=== PATIENT | female | born 1980 | race Caucasian/White ===

== ENCOUNTER → 2017-12-09 | Outpatient (CLI) | payer BC ==
[~2017-12-09] MED LIST: CETI5; Dexamethasone4 MG PO; FEXPSEER PO; OXYACE5T PO; Robaxin500 MG PO
[2017-12-11 12:03] LABS: HPV Genotype 16 Not Detected (NOTDET); HPV Genotype 18 Not Detected (NOTDET)
[2017-12-18 08:33] LABS: HPV High Risk Other Not Detected (NOTDET)
[2017-12-21 06:56] LABS: Source Cervix
== END ==
LOC: LAB 16:17 → LAB SHORT 16:17
PROVIDERS: Nurse Practitioner Family
DX: Z12.4 Encounter for screening for malignant neoplasm of cervix (principal)
CPT/HCPCS: 87624; 88142

== ENCOUNTER 2018-12-28 12:03 | Day surgery (SDC) | payer BC ==
[~2018-12-28] VITALS: Ht 177.8 cm; Wt 106.5 kg
[~2018-12-28 12:03] MED LIST changes: +AMIT25 PO; +Allegra-D 12 H1 EACH PO; +BACL20 PO; +CLARITIN10 MG PO; +Ferrous Sulfat325 M2 PO; +OMEPRAZOLE MAGN20 MG PO
== END 2018-12-28 14:05 | disposition home or self-care (01) ==
LOC: ORSCSDS 12:03
PROVIDERS: Internal Medicine Gastroenterology
PROC: 0DB68ZX Excision of Stomach, Via Natural or Artificial Opening Endoscopic, Diagnostic (ICD-10-PCS; principal; 2018-12-28 13:45)
PROC: 0DB58ZX Excision of Esophagus, Via Natural or Artificial Opening Endoscopic, Diagnostic (ICD-10-PCS; principal; 2018-12-28 13:45)
DX: R13.10 Dysphagia, unspecified (principal); K22.2 Esophageal obstruction
CPT/HCPCS: 88305; 88342; J2250; J2704; J7120

== ENCOUNTER → 2022-02-07 | Outpatient (CLI) | payer BC, OTHER ==
[2022-02-07 19:25] LABS: BASOPHILS ABSOLUTE AUTO 0.03 K/mm3 (0.00-0.23); BASOPHILS PERCENT AUTO 0 % (0-2); EOSINOPHILS ABSOLUTE AUTO 0.07 K/mm3 (0.00-0.68); EOSINOPHILS PERCENT AUTO 1 % (0-6); Hematocrit 38.9 % (33.0-51.0); Hemoglobin 13.2 g/dL (11.5-16.0); IMMATURE GRAN ABSOLUTE AUTO 0.03 K/mm3 (0.00-0.10); IMMATURE GRAN PERCENT AUTO 0 % (0-1); LYMPHOCYTES ABSOLUTE AUTO 1.71 K/mm3 (0.84-5.20); LYMPHOCYTES PERCENT AUTO 18 % (21-46); MONOCYTES ABSOLUTE AUTO 0.56 K/mm3 (0.16-1.47); MONOCYTES PERCENT AUTO 6 % (4-13); Mean Corpuscular HGB 30.5 pg (26.0-34.0); Mean Corpuscular HGB Conc 33.9 g/dL (31.5-36.5); Mean Corpuscular Volume 90 fL (80-100); Mean Platelet Volume 9.8 fL (9.1-12.4); NEUTROPHILS ABSOLUTE AUTO 7.15 K/mm3 (1.96-9.15); NEUTROPHILS PERCENT AUTO 75 % (41-73); Platelet Count 224 K/mm3 (150-400); RDW Coefficient Variation 12.7 % (11.7-14.2); RDW Standard Deviation 41.8 fL (35.1-46.3); Red Blood Cell Count 4.33 M/mm3 (3.80-5.20); White Blood Cell Count 9.55 K/mm3 (4.00-11.30)
[2022-02-07 19:36] LABS: Albumin, Blood 4.2 g/dL (3.4-5.0); Albumin/Globulin Ratio 1.4 (0.8-1.8); Bilirubin, Total 0.6 mg/dL (0.1-1.0); Calcium, Blood 9.2 mg/dL (8.5-10.1); Creatinine, Blood 0.75 mg/dL (0.40-1.00); Globulin, Blood 3.1 g/dL (2.2-4.0); Potassium, Blood 3.7 mmol/L (3.5-5.5); Total Protein, Blood 7.3 g/dL (6.4-8.2)
== END | disposition home or self-care (01) ==
LOC: LAB SHORT 19:21
PROVIDERS: Physician Assistant
DX: R10.9 Unspecified abdominal pain (principal)
CPT/HCPCS: 80053; 82150; 83690; 85025

== ENCOUNTER → 2024-08-16 | Outpatient (CLI) | payer BC, OTHER ==
[~2024-08-16] MED LIST changes: +Acetaminophen325 M1 PO; +CYCL10 PO; +DETOX PO; +IBUP400; +IBUP800 PO; +Loratadine10 MG PO; +MULVITA PO; +NAPR500 PO; +NEURONTIN300 MG PO; +OXYACE7.5T; +PROG100 PO; +Percocet 5-3251 EACH PO
== END ==
LOC: LAB 12:31 → LAB SHORT 12:31
DX: K13.70 Unspecified lesions of oral mucosa (principal)
CPT/HCPCS: 88305